=== PATIENT | female | born 1940 | race African-American/Black ===

== ENCOUNTER 2020-06-05 05:48 | Emergency (ER) | payer OTHER ==
[~2020-06-05] VITALS: Ht 172.7 cm; Wt 73.0 kg
[2020-06-05] MEDS ORDERED: SODIUM CHLORIDE 0.9% 1,000 ML IV ONE (07:24)
[2020-06-05] MEDS ORDERED: KETOROLAC 30MG/ML VIAL IV STA (07:24)
[2020-06-05 07:58] LABS: BASOPHILS % 0.7 % (0.0-2.0); CHLORIDE 107 mEq/L (98-107); EOSINOPHILS % 0.9 % (0.0-5.0); HEMATOCRIT. 41.7 % (36.0-48.0); HEMOGLOBIN. 14.2 g/dL (12.0-16.0); LYMPHOCYTES % 18.3 % (20.0-50.0); MEAN CORPUSCULAR HEMOGLOBIN 29.7 pg (28.0-32.0); MEAN CORPUSCULAR VOLUME 87.2 fL (81.0-99.0); MEAN PLATELET VOLUME 10.3 fl (7.4-10.4); MONOCYTES % 7.5 % (2.0-8.0); NEUTROPHILS % 72.6 % (40.0-76.0); PLATELET 128 x1000/uL (130-400); RED BLOOD CELL COUNT 4.78 mill/uL (4.2-5.4); RED CELL DISTRIBUTION WIDTH 14.3 % (11.6-14.6)
[2020-06-05 12:10] VITALS: BP 162/72
== END 2020-06-05 12:29 | disposition home or self-care (01) ==
LOC: ER 05:48
DX: S89.82XA Other specified injuries of left lower leg, initial encounter (principal); M79.605 Pain in left leg; X58.XXXA Exposure to other specified factors, initial encounter; Y93.9 Activity, unspecified; Y92.9 Unspecified place or not applicable; I25.2 Old myocardial infarction; I25.10 Atherosclerotic heart disease of native coronary artery without angina pectoris; I10 Essential (primary) hypertension; Z95.1 Presence of aortocoronary bypass graft
CPT/HCPCS: 36415; 71045; 73560; 80053; 85025; 93005; 93923; 93970; 96374; 99285; J1885; J7030

== ENCOUNTER 2024-12-06 19:02 | Emergency (ER) | payer OTHER ==
[~2024-12-06] VITALS: Ht 170.2 cm; Wt 82.0 kg
[2024-12-06 19:11] VITALS: O2SAT 99
[2024-12-06] MEDS ORDERED: FURO20TA4 PO (20:32)
[2024-12-06] MEDS ORDERED: SPIR25TA6 PO (20:32)
[2024-12-06] MEDS ORDERED: MELO-104 PO (20:32)
[2024-12-06] MEDS ORDERED: ASPI-1497 PO (20:32)
[2024-12-06] MEDS ORDERED: ISOS60TA76 PO (20:32)
[2024-12-06] MEDS ORDERED: CARV25TA47 MT (20:32)
[2024-12-06] MEDS ORDERED: ROSU40TA MT (20:32)
[2024-12-06] MEDS ORDERED: LOSA-415 PO (20:32)
[2024-12-06 21:26] LABS: HEMATOCRIT. 37.3 % (36.0-48.0); HEMOGLOBIN. 12.9 g/dL (12.0-16.0); MEAN CORPUSCULAR HEMOGLOBIN 30.4 pg (28.0-32.0); MEAN CORPUSCULAR HGB CONC 34.5 g/dL (31.0-37.0); MEAN CORPUSCULAR VOLUME 88.3 fL (81.0-99.0); MEAN PLATELET VOLUME 9.9 fl (7.4-10.4); PLATELET 105 x1000/uL (130-400); RED BLOOD CELL COUNT 4.23 mill/uL (4.2-5.4); WHITE BLOOD COUNT 5.3 x1000/uL (4.5-11.0)
[2024-12-06 21:29] LABS: CHLORIDE 105 mEq/L (98-107); POTASSIUM 3.9 mEq/L (3.5-5.1); SODIUM 137 mEq/L (136-145)
[2024-12-06 21:30] LABS: CALCIUM 9.8 mg/dL (8.7-10.4); CARBON DIOXIDE 25 mEq/L (21-32)
[2024-12-06 21:31] LABS: DIFFERENTIAL COMMENT 1
[2024-12-06 21:33] LABS: INR 1.1
[2024-12-06 21:35] LABS: CREATININE 1.7 mg/dL (0.6-1.0); GLUCOSE 192 mg/dL (70-105); UREA NITROGEN BLOOD 22 mg/dL (9-23)
[2024-12-06 21:36] LABS: TROPONIN I HIGH SENSITIVITY 11 ng/L (3.0-34)
[2024-12-06 21:37] LABS: ALANINE AMINOTRANSFERASE 11 IU/L (10-49); ALBUMIN 4.1 g/dL (3.2-4.8); ASPARTATE AMINOTRANSFERASE 16 IU/L (<34); BILIRUBIN DIRECT 0.2 mg/dL (<=3.0); BILIRUBIN TOTAL 0.7 mg/dL (0.1-1.0); PROTEIN TOTAL 7.3 g/dL (6.0-8.3)
[2024-12-06 21:54] LABS: PLATELET ESTIMATE SLIGHTLY DECREASED
[2024-12-06] MEDS: SODIUM CHLORIDE 0.9% 500 ML IV ONE (22:05)
[2024-12-06] MEDS ORDERED: AZITHROMYCIN 500MG/250ML 250 ML IV STA (23:18)
[2024-12-06] MEDS ORDERED: CEFTRIAXONE 1GM/50ML 50 ML IV ONE (23:30)
[2024-12-06] MEDS ORDERED: CEFTRIAXONE 2GM/50ML 50 ML IV ONE (23:30)
[2024-12-07 00:30] LABS: TROPONIN I HIGH SENSITIVITY 10 ng/L (3.0-34)
[2024-12-07] MEDS ORDERED: ACETAMINOPHEN 325MG TABLET PO PRN (00:30)
[2024-12-07] MEDS ORDERED: MAGNESIUM/ALUMINUM HYDROXIDE/SIMETHICONE 30ML UDC PO PRN (00:30)
[2024-12-07] MEDS ORDERED: ONDANSETRON HCL 4MG/2ML INJ IV PRN (00:30)
[2024-12-07] MEDS ORDERED: SODIUM CHLORIDE 0.9% 1,000 ML IV SCH (00:30)
[2024-12-07] MEDS ORDERED: HYDROCODONE/ACETAMINOPHEN 5/325MG TABLET PO PRN (00:30)
[2024-12-07] MEDS ORDERED: AZITHROMYCIN 500MG/250ML 250 ML IV NR (00:30)
[2024-12-07] MEDS ORDERED: PANTOPRAZOLE SODIUM 40 MG/VIAL IV SCH (00:30)
[2024-12-07] MEDS ORDERED: IPRATROPIUM/ALBUTEROL 0.5-3(2.5)MG/3ML NEB NEB PRN (00:30)
[2024-12-07 02:45] LABS: COLOR URINE YELLOW (YELLOW)
[2024-12-07 02:53] VITALS: BP 130/79; PULSE 76; RESP 18; TEMP 36.8; O2SAT 99
[2024-12-07 02:56] LABS: CLARITY URINE CLOUDY (CLEAR)
[2024-12-07 02:57] LABS: PH URINE 5.5 (4.5-8.0)
[2024-12-07 03:01] LABS: GLUCOSE URINE NEGATIVE (NEGATIVE); KETONES URINE TRACE (NEGATIVE); NITRITE URINE NEGATIVE (NEGATIVE); OCCULT BLOOD URINE TRACE (NEGATIVE); PROTEIN URINE 2+ (NEGATIVE)
[2024-12-07 03:02] LABS: LEUKOCYTE ESTERASE URINE NEGATIVE (NEGATIVE)
[2024-12-07 03:11] LABS: RBC URINE 0-2 /hpf (0-2); SQUAMOUS EPITHELIAL CELL URINE FEW /lpf (RARE/1+); WBC URINE 0-2 /hpf (0-2)
[2024-12-07 03:13] LABS: BACTERIA URINE NONE SEEN
[2024-12-07] MEDS ORDERED: ENOXAPARIN 30MG/0.3ML SYR SUBCUT SCH (09:00)
[2024-12-07] MEDS ORDERED: AZITHROMYCIN 500MG/250ML 250 ML IV SCH (09:00)
[2024-12-07] MEDS ORDERED: CEFTRIAXONE 1GM/50ML 50 ML IV SCH (23:00)
== END 2024-12-07 02:48 | disposition short-term general hospital (02) ==
LOC: ER 19:02
DX: R55 Syncope and collapse (principal); R09.81 Nasal congestion; R05.9 Cough, unspecified; R35.0 Frequency of micturition; I25.2 Old myocardial infarction; I10 Essential (primary) hypertension; Z79.899 Other long term (current) drug therapy; Z79.82 Long term (current) use of aspirin
CPT/HCPCS: 99291; 71045; 80076; 80048; 81003; 83880; 83605; 83690; 85025; 85610; 87040; 87086; 84484; 87804 ×2; 36415; 93005; J0456; J0696; J7040; A4606